=== PATIENT | female | born 2000 | race Two or more races ===

== ENCOUNTER 2024-11-19 01:20 | Emergency (ER) | payer OTHER ==
[~2024-11-19] VITALS: Ht 177.8 cm; Wt 81.6 kg
[2024-11-19 01:49] VITALS: BP 114/74; O2SAT 97
[2024-11-19] MEDS ORDERED: CEFTRIAXONE SODIUM 1,000 MG VIAL IM STA (03:32)
[2024-11-19] MEDS ORDERED: KETOROLAC TROMETHAMINE 10 MG TABLET PO STA (03:32)
[2024-11-19] MEDS ORDERED: KETOROLAC TROMETHAMINE 10 MG TABLET PO ONE (03:41)
[2024-11-19] MEDS ORDERED: CEFTRIAXONE SODIUM 1,000 MG VIAL ONE (03:42)
[2024-11-19 04:11] LABS: PH,URINE 5.5 (5.0-8.0); URINE APPEARANCE Clear; URINE BILIRRUBIN Negative (NEGATIVE); URINE COLOR Dark Yellow; URINE GLUCOSE Negative (NEGATIVE); URINE KETONE Trace (NEGATIVE); URINE LEUKOCYTE Small; URINE NITRATE Positive; URINE PROTEIN 30 (NEGATIVE)
[2024-11-19 04:14] LABS: URINE CAST 1.47 uL (0.0-1.40); URINE EPITHELIAL CELLS 101.4 uL (0.0-38.8); URINE RBC 11.1 uL (0.0-20.8); URINE WBC 183.9 uL (0.0-23.2)
[2024-11-19 04:15] LABS: HEMATOCRIT 35.8 % (36.0-45.00); HEMOGLOBIN 12.1 g/dL (12.0-15.00); MEAN CELL VOLUME 89.4 fL (80.00-100.00); MEAN CORPUSCULAR HEMOGLOBIN 30.1 pg (27.00-32.0); MEAN CORPUSCULAR HGB CONC 33.7 g/dl (32.0-36.0); PLATELET COUNT 241 K/uL (150-450); RED BLOOD COUNT 4.01 M/uL (4.00-6.00); RED CELL DISTRIBUTION WIDTH 13.8 % (11.5-14.5)
[2024-11-19 05:07] LABS: URINE BLOOD TRACE; URINE MUCUS MODERATE
[2024-11-19] MEDS ORDERED: CEPHALEXIN500 MG PO (06:16)
== END 2024-11-19 06:23 ==
LOC: ER 01:23
PROVIDERS: General Practice
DX: N61.0 Mastitis without abscess (principal); N39.0 Urinary tract infection, site not specified; Z20.822 Contact with and (suspected) exposure to COVID-19
CPT/HCPCS: 36415; 96372; 99282; J0696